=== PATIENT | male | born 1985 | race Caucasian/White ===

== ENCOUNTER 2020-12-25 10:45 | Emergency (ER) | payer OTHER ==
[2020-12-25] MEDS ORDERED: ACETAMINOPHEN 325 MG TABLET PO STA (10:47)
[2020-12-25 11:03] VITALS: BP 124/75
--- NOTE | 2020-12-25 11:55 | XRAY Report ---
PROCEDURE: Shoulder 2 View RT INDICATIONS: shoulder pain TECHNIQUE: 2 views of the shoulder were acquired. COMPARISON: None. FINDINGS: Bones: No fractures or dislocations. No suspicious bony lesions. Visualized ribs appear intact. R otator cuff is high riding. Soft tissues: No suspicious soft tissue calcifications. IMPRESSION: 1. No visualized acute fracture or dislocation. However, occult injury cannot be excluded. Recommend short interval imaging follow-up in 7-10 days as clinically indicated for additional evaluation. 2. High riding humeral head which can be seen with rotator cuff pathology. Reviewed by: Starla Delgado MD on 12/25/2020 11:54 AM PDT Approved by: Starla Delgado MD on 12/25/2020 11:54 AM PDT Station ID: [id number]
[2020-12-25] MEDS ORDERED: HYDROcod/ACETAM 5/325 MG TABLET PO STA (12:00)
--- NOTE | 2020-12-25 12:02 | ED Physician Documentation ---
PD HPI UPPER EXT INJURY - Stated complaint Stated Complaint: RT SHOULDER PX - Chief complaint Chief Complaint: Trauma Ext - History obtained from History obtained from: Patient - History of Present Illness Location: Right (About 5:00 last night fell directly on the right shoulder and has significant pain and describes a bump over the acromioclavicular joint. Significant decreased range of motion. No other injuries.) Review of Systems Constitutional: reports: Reviewed and negative Eyes: reports: Reviewed and negative Ears: reports: Reviewed and negative Nose: reports: Reviewed and negative Throat: reports: Reviewed and negative PD PAST MEDICAL HISTORY - Present Medications Home Medications: Ambulatory Orders Medication Instructions Recorded Confirmed HYDROcod/ACETAM 5/325 [[place] 5/325] 1 - 2 tab PO Q6H PRN #15 tablet 12/25/20 - Allergies Allergies/Adverse Reactions: Allergies Allergy/AdvReac Type Severity Reaction Status Date / Time No Known Drug Allergies Allergy Verified 12/25/20 11:00 PD ED PE NORMAL - Vitals Vital signs reviewed: Yes - General General: Alert and oriented X 3, No acute distress - Neck Neck: Supple, no meningeal sign, No bony TTP - Extremities Extremities: Other (Focally tender with some swelling over the right AC joint, cannot range at all due to pain. No tenderness over the clavicle medially or the glenohumeral joint.) - Neuro Neuro: Alert and oriented X 3, Normal speech Results - Vitals Vitals: Vital Signs - 24 hr 12/25/20 11:00 Temperature 36.5 C Heart Rate 70 Respiratory 16 Rate Blood Pressure 124/75 O2 Saturation 98 Oxygen O2 Source Room air PD MEDICAL DECISION MAKING - ED course ED course: 2 view x-ray of the right shoulder interpreted contemporaneously by me shows no fracture. Does have a high riding humeral head which may be suggestive of rotator cuff pathology. However this does not fit the clinical picture. I am prescribing a short course of short-acting opioid pain medication for this patient. I have reviewed the patients [employer]ONE[employer]ODUC[employer] and no concerning findings were noted. I have discussed that the opioids are for short term therapy only, and will not be refilled from the ED. Diagnosis: 1. Right acromioclavicular separation, type I Departure - Departure Disposition: 01 Home, Self Care Condition: Good Record reviewed to determine appropriate education?: Yes Instructions: ED Sprain AC Joint Prescriptions: HYDROcod/ACETAM 5/325 [[place] 5/325] 1 - 2 tab PO Q6H PRN #15 tablet PRN Reason: Pain Comments: Prescription sent electronically to [facility]. [place] for an appointment. Wear the sling for comfort, you can do gentle range of motion exercises as able. I am prescribing a short course of narcotic pain medication for you. These are potentially dangerous and addictive medications that should be used carefully. These medications may constipate you. Take an rebt-eha-nxgbtvz stool softener (docusate) twice daily with plenty of water while taking these medications. If you go 24 hours without a bowel movement, take vlcv-jlg-fufwdrw miralax, per package instructions. Do not drink or drive while taking these medications. If you received narcotic or sedating medications while in the emergency department, do not drive for 24 hours. Store this medication in a safe, secure place and out of reach of children. It is a violation of federal law to give or sell this medication to another person or to use in a manner other than prescribed. The ED will not refill narcotic prescriptions, including prescriptions lost or stolen. To dispose of unwanted medications: 1. [facility] at [address] in [place] has a medication drop box. They accept prescription medications (in pill form) Friday through Friday 9:00 a.m. to 5:00 p.m. 2. The [facility] Police Department accepts prescription medications (in pill form only) for disposal year round. Call for more information. 3. Contact the [facility] for the next [facility] sponsored prescription drug collection event. , x9077, or x5001; Note that many narcotic pain relievers also contain Tylenol/acetaminophen. Please ensure that your total dose of acetaminophen from all sources does not exceed 3 g (3000 mg) per day. Discharge Date/Time: 12/25/20 12:18
== END 2020-12-25 12:18 | disposition home or self-care (01) ==
LOC: ED 10:45
DX: S43.101A Unspecified dislocation of right acromioclavicular joint, initial encounter (principal); S43.51XA Sprain of right acromioclavicular joint, initial encounter; W19.XXXA Unspecified fall, initial encounter; Y93.89 Activity, other specified
CPT/HCPCS: 73030; 99283; A9270

== ENCOUNTER 2021-12-26 13:19 | Emergency (ER) | payer OTHER ==
[2021-12-26] MEDS ORDERED: IBUPROFEN 800 MG TABLET PO STA (14:08)
--- NOTE | 2021-12-26 14:09 | ED Physician Documentation ---
History of Present Illness - Stated complaint Stated Complaint: LT RIB CAGE PAIN/INJURY - Chief complaint Chief Complaint: Trauma Ch/Bk - History obtained from History obtained from: Patient (About 6 days ago he excellently ran into a small play structure to keep the child from falling. Pain was not too bad but is more significant over the last day or so. It is in the left low anterior ribs. No other injuries.) Review of Systems Constitutional: reports: Reviewed and negative Eyes: reports: Reviewed and negative Ears: reports: Reviewed and negative Nose: reports: Reviewed and negative PD PAST MEDICAL HISTORY - Present Medications Home Medications: Ambulatory Orders Medication Instructions Recorded Confirmed HYDROcod/ACETAM 5/325 [[place] 5/325] 1 - 2 tab PO Q6H PRN #15 tablet 12/26/21 - Allergies Allergies/Adverse Reactions: Allergies Allergy/AdvReac Type Severity Reaction Status Date / Time No Known Drug Allergies Allergy Verified 12/26/21 13:27 PD ED PE NORMAL - Vitals Vital signs reviewed: Yes - General General: Alert and oriented X 3, No acute distress - HEENT HEENT: PERRL, EOMI - Neck Neck: Supple, no meningeal sign, No bony TTP - Respiratory Respiratory: Other (There is a bruise around rib 8 or 10 in the posterior axillary line on the left, no tenderness there. He is tender to the corresponding ribs more anterior to this in the anterior axillary line. Breath sounds equal and symmetric.) - Abdomen Abdomen: Non tender - Neuro Neuro: Alert and oriented X 3, Normal speech Results - Vitals Vitals: Vital Signs - 24 hr 12/26/21 12/26/21 12/26/21 13:27 14:21 15:15 Temperature 36.8 C Heart Rate 102 H 76 76 Respiratory 16 16 16 Rate Blood Pressure 137/74 H 116/88 H 120/74 O2 Saturation 97 95 100 Oxygen O2 Source Room air PD MEDICAL DECISION MAKING - ED course ED course: X-ray not showing a rib fracture, nor a pneumothorax. Discussed with him the possibility of a hairline fracture, he does not have left upper quadrant tenderness. Departure - Departure Disposition: 01 Home, Self Care Clinical Impression: Chest wall contusion Condition: Good Record reviewed to determine appropriate education?: Yes Instructions: ED Contusion Rib Prescriptions: HYDROcod/ACETAM 5/325 [[place] 5/325] 1 - 2 tab PO Q6H PRN #15 tablet PRN Reason: Pain Comments: I sent your prescription electronically to [facility] in [place]. As discussed the x-ray does not show rib fracture but given your symptoms, it is possible that you have a nondisplaced rib fracture. It is good to continue to try to exercise and do a brief deep breathing. Ibuprofen for pain when its not too bad. Return if worse. [place] Friday or Friday. I am prescribing a short course of narcotic pain medication for you. These are potentially dangerous and addictive medications that should be used carefully. These medications may constipate you. Take an rrep-ybd-zwwthym stool softener (docusate) twice daily with plenty of water while taking these medications. If you go 24 hours without a bowel movement, take dbmc-gay-zwebktg miralax, per package instructions. Do not drink or drive while taking these medications. If you received narcotic or sedating medications while in the emergency department, do not drive for 24 hours. Store this medication in a safe, secure place and out of reach of children. It is a violation of federal law to give or sell this medication to another person or to use in a manner other than prescribed. The ED will not refill narcotic prescriptions, including prescriptions lost or stolen. To dispose of unwanted medications: 1. [facility] at [address] in [place] has a medication drop box. They accept prescription medications (in pill form) Friday through Friday 9:00 a.m. to 5:00 p.m. 2. The [facility] Police Department accepts prescription medications (in pill form only) for disposal year round. Call for more information. 3. Contact the [facility] for the next [facility] sponsored prescription drug collection event. , x7310, or x6428; Note that many narcotic pain relievers also contain Tylenol/acetaminophen. P lease ensure that your total dose of acetaminophen from all sources does not exceed 3 g (3000 mg) per day. Forms: Activity restrictions Discharge Date/Time: 12/26/21 15:15
--- NOTE | 2021-12-26 14:42 | XRAY Report ---
PROCEDURE: Ribs w/PA Chest LT INDICATIONS: rib inj TECHNIQUE: 2 views of the left ribs were acquired, along with a single view chest. COMPARISON: None. FINDINGS: Surgical changes and devices: None. Bones and chest wall: No fractures or dislocations. No suspicious bony lesions. Overlying soft tis sues appear unremarkable. Lungs and pleura: No pleural effusions or pneumothorax. Lungs appear clear. Mediastinum: Mediastinal contours appear normal. Heart size is normal. IMPRESSION: No displaced left-sided rib fracture. Reviewed by: Wilfrid Anderson MD on 12/26/2021 2:41 PM PDT Approved by: Wilfrid Anderson MD on 12/26/2021 2:41 PM PDT Station ID: [id number]
[2021-12-26 15:16] VITALS: BP 120/74
== END 2021-12-26 15:15 | disposition home or self-care (01) ==
LOC: ED 13:19
DX: S20.213A Contusion of bilateral front wall of thorax, initial encounter (principal); W22.8XXA Striking against or struck by other objects, initial encounter
CPT/HCPCS: 71101; 99282; 99283; A9270

== ENCOUNTER 2022-03-11 14:29 | Emergency (ER) | payer OTHER ==
--- OUTSIDE RECORDS SUMMARY | 2022-03-11 14:46 | EXTERNAL MEDICAL SUMMARY RPT | Continuity of Care Document ---
:1985 Author Organization [facility] Address [address] [place] [address] Phone Allergies No information. Encounters No information. Functional Status No information. Immunizations No information. Medications date description facility [id number] hydrocodone-acetaminophen All [id number]+0000 methocarbamol All [id number]+0000 methocarbamol All [id number]+0000 hydrocodone-acetaminophen All Problems No information. Procedures date description facility [id number] Visit Code Hold All Results/Labs No information. Social History No information. Vital Signs date measurement value units [id number]+0000 BMI BMI 27.30 kg/m2 [id number]+0000 BP_diastolic BP_diastolic 86 mm[H g] [id number]+0000 BP_systolic BP_systolic 128 mm[Hg] [id number]+0000 heart_rate heart_rate 85 /min [id number]+0000 height_metric height_metric 180.34 cm [id number]+0000 height_standard height_standard 71 in [id number]+0000 respiration_rate respiration_rate 15 /min [id number]+0000 temperature_metric temperature_metric 36.56 C [id number]+0000 temperature_standard temperature_standard 9 7.8 F [id number]+0000 weight_metric weight_metric 88.45 kg [id number]+0000 weight_standard weight_standard 195 lb
--- NOTE | 2022-03-11 16:48 | ED Physician Documentation ---
History of Present Illness - Stated complaint Stated Complaint: HEAD LAC - Chief complaint Chief Complaint: Laceration - Additonal information Additional information: Patient is a 36-year-old male presenting to the emergency department with scalp laceration. 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 Endorses for mild headache but denies any loss of consciousness, use of blood thinning medications, blurred or double vision. Does report that he "saw stars" during the event. Denies any previous history of concussion. Review of Systems Ten Systems: 10 systems reviewed and negative PD PAST MEDICAL HISTORY - Past Surgical History Past Surgical History: Yes General: Appendectomy - Present Medications Home Medications: Ambulatory Orders Medication Instructions Recorded Confirmed HYDROcod/ACETAM 5/325 [[place] 5/325] 1 - 2 tab PO Q6H PRN #15 tablet 12/26/21 Bacitracin Zinc Oint 1 applic TOP BID #1 gm 03/11/22 - Allergies Allergies/Adverse Reactions: Allergies Allergy/AdvReac Type Severity Reaction Status Date / Time No Known Drug Allergies Allergy Verified 03/11/22 14:39 - Social History Does the pt smoke?: No Smoking Status: Never smoker Does the pt drink ETOH?: No Does the pt have substance abuse?: No - Immunizations Immunizations are current?: Yes - POLST Patient has POLST: No PD ED PE NORMAL - General General: Alert and oriented X 3, No acute distress, Well developed/nourished - HEENT HEENT: Other (2 cm left parietal scalp laceration.) - Neck Neck: Supple, no meningeal sign - Respiratory Respiratory: No respiratory distress - Male Male : Deferred - Rectal Rectal: Deferred - Derm Derm: Normal color - Extremities Extremities: No deformity - Neuro Neuro: Alert and oriented X 3, 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, No motor deficit - Psych Psych: Normal mood Results - Vitals Vitals: Vital Signs - 24 hr 03/11/22 14:35 Temperature 36.3 C L Heart Rate 75 Respiratory 16 Rate Blood Pressure 149/80 H O2 Saturation 98 Oxygen O2 Source Room air Procedures - Laceration (location) Scalp left Length in cm: 2 Wound type: Curved, Into subcut fat Neurovascular status: Sensory intact Anesthesia: Lidocaine 1% with epi Wound preparation: Chlorhexadine Skin layer closure: [place], Size #-0 - enter number (6) PD MEDICAL DECISION MAKING - ED course Complexity details: d/w patient ED course: Patient 36-year-old male presenting with scalp laceration. No loss of consciousness, use of blood thinners or indications for advanced imaging. Wound cleaned and repaired as outlined in procedure note above. Wound care instructions and follow-up instructions given. Departure - Departure Disposition: 01 Home, Self Care Clinical Impression: Laceration Instructions: ED Laceration Scalp Stitch Or Stap Prescriptions: Bacitracin Zinc Oint 1 applic TOP BID #1 gm Comments: Thank you for allowing us to care for you today [facility]. Today received sick stitches to the laceration in your scalp. These will need to be removed in 7 to 10 days. Rinsing the site of your injury with warm soap and water is fine but please do not scrub the site of your injury or submerge the site underwater until it is fully healed. I recommend twice daily application of bacitracin or Neosporin to the site of your injury. Please monitor carefully for any signs of infection such as increasing swelling, heat or purulent drainage. If anytime you develop any new or worsening symptoms please not hesitate to return.
[2022-03-11] MEDS ORDERED: LIDOCAINE 1%-EPI 1:100000 20 ML MDV SUBQ STA (16:49)
[2022-03-11] MEDS ORDERED: BACITRACIN ZINC OINT 1 PACKET TOP STA (17:22)
[2022-03-11 17:29] VITALS: BP 130/80
== END 2022-03-11 17:28 | disposition home or self-care (01) ==
LOC: ED 14:29
DX: S01.91XA Laceration without foreign body of unspecified part of head, initial encounter (principal); W22.8XXA Striking against or struck by other objects, initial encounter
CPT/HCPCS: 12001; 99282; A9270

== ENCOUNTER 2023-04-13 19:33 | Emergency (ER) | payer OTHER ==
[2023-04-13] MEDS ORDERED: CHERRY SYRUP 10 ML UDC PO ONE (20:18)
[2023-04-13] MEDS ORDERED: DEXAMETHASONE 10 MG/ML VIAL PO STA (20:18)
[2023-04-13] MEDS ORDERED: BENZONATATE 100 MG CAPSULE PO STA (20:18)
--- NOTE | 2023-04-13 20:21 | ED Physician Documentation ---
History of Present Illness - Stated complaint Stated Complaint: COUGHING BLOOD - Chief complaint Chief Complaint: Resp - Additonal information Additional information: Patient 37-year-old male presenting to the emergency department with cough, congestion, low-volume hemoptysis. Reports persistent worsening cough since . Denies fever, chest pain or shortness of breath. Reports began having small streaks of blood in his cough the last 2 days. Reports longstanding smoking history. Currently reports 2 packs daily. States has quit many times in the past but frequently relapses. He denies other illicit substances. Denies any night sweats, weight loss, travel outside of the [facility], known sick contacts. Review of Systems Constitutional: denies: Fever Eyes: denies: Loss of vision Ears: denies: Loss of hearing Nose: denies: Rhinorrhea / runny nose Throat: denies: Dental pain / toothache Cardiac: denies: Chest pain / pressure Respiratory: reports: Cough, Hemoptysis. denies: Dyspnea, Wheezing GI: denies: Abdominal Pain, Nausea, Vomiting PD PAST MEDICAL HISTORY - Past Surgical History Past Surgical History: Yes General: Appendectomy - Present Medications Home Medications: Ambulatory Orders Medication Instructions Recorded Confirmed HYDROcod/ACETAM 5/325 [[place] 5/325] 1 - 2 tab PO Q6H PRN #15 tablet 12/26/21 Bacitracin Zinc Oint 1 applic TOP BID #1 gm 03/11/22 Benzonatate [Tessalon] 200 mg PO TID PRN #30 cap 04/13/23 Codeine Phosphate/Guaifenesin 10 ml PO DAILY PM #100 ml 04/13/23 [Guaifen-Codeine 200-20 mg/10Ml] predniSONE [Deltasone] 40 mg PO DAILY #5 tablet 04/13/23 - Allergies Allergies/Adverse Reactions: Allergies Allergy/AdvReac Type Severity Reaction Status Date / Time No Known Drug Allergies Allergy Verified 04/13/23 19:45 - Social History Does the pt smoke?: No Smoking Status: Never smoker Does the pt drink ETOH?: No Does the pt have substance abuse?: No - Immunizations Immunizations are current?: Yes - POLST Patient has POLST: No PD ED PE NORMAL - Vitals Vital signs reviewed: Yes (Low level tachycardia) - General General: Alert and oriented X 3, No acute distress, Well developed/nourished, Other (Frequent episodes of nonproductive cough) - HEENT HEENT: Atraumatic - Neck Neck: Supple, no meningeal sign - Cardiac Cardiac: RRR - Respiratory Respiratory: No respiratory distress - Male Male : Deferred - Rectal Rectal: Deferred Results - Vitals Vitals: Vital Signs - 24 hr 04/13/23 04/13/23 19:42 19:45 Temperature 36.1 C L 36.5 C Heart Rate 107 H 107 H Respiratory 19 19 Rate Blood Pressure 154/96 H 154/96 H O2 Saturation 99 99 Oxygen O2 Source Room air - Labs Labs: Laboratory Tests 04/13/23 20:30 Nasal Adenovirus (PCR) NOT DETECTED Nasal B. parapertussis DNA (PCR) NOT DETECTED Nasal Coronavir 229E PCR NOT DETECTED Nasal Coronavir HKU1 PCR NOT DETECTED Nasal Coronavir NL63 PCR NOT DETECTED Nasal Coronavir OC43 PCR NOT DETECTED Nasal Enterovir/Rhinovir PCR DETECTED A Nasal Influenza B PCR NOT DETECTED Nasal Influenza A PCR NOT DETECTED Nasal Parainfluen 1 PCR NOT DETECTED Nasal Parainfluen 2 PCR NOT DETECTED Nasal Parainfluen 3 PCR NOT DETECTED Nasal Parainfluen 4 PCR NOT DETECTED Nasal RSV (PCR) NOT DETECTED Nasal B.pertussis DNA PCR NOT DETECTED Nasal C.pneumoniae (PCR) NOT DETECTED Lucas Human Metapneumo PCR NOT DETECTED Nasal M.pneumoniae (PCR) NOT DETECTED Nasal SARS-CoV-2 (PCR) NOT DETECTED PD Medical Decision Making - ED course Complexity details: reviewed results, d/w patient ED course: Patient 37-year-old male presenting to the emergency department with cough with low-volume hemoptysis. Low level tachycardia on arrival but afebrile, otherwise hemodynamically stable. Nontoxic in appearance. Clear aeration in all lung howell. X-ray negative for consolidation, abscess, granular Tory complexes. Respiratory panel positive for rhinovirus. In setting of longstanding smoking history patient appears to be suffering from bronchitis. Will discharge with medication to work as an antitussive as well as a short course of prednisone. Will encourage tobacco cessation as well as careful follow-up with primary care. Clear return precautions given. Departure - Departure Disposition: 01 Home, Self Care Clinical Impression: Bronchitis, Rhinovirus infection Prescriptions: predniSONE [Deltasone] 40 mg PO DAILY #5 tablet Codeine Phosphate/Guaifenesin [Guaifen-Codeine 200-20 mg/10Ml] 10 ml PO DAILY PM #100 ml Benzonatate [Tessalon] 200 mg PO TID PRN #30 cap PRN Reason: Cough Comments: Thank you for allowing us to care for you today Fany. The x-rays taken today did not show any pneumonia or other significant abnormality with your lung. Your cough is very consistent with what is known as acute bronchitis, and inflammation of the bronchi. You were positive for rhinovirus and it is not atypical for an upper respiratory infection to cause bronchitis in individuals with a longstanding history of heavy smoking. I would like to strongly encourage you to work towards discontinue your use of tobacco products. I written a prescription for a course of prednisone to help with any inflammation around your lungs as well as to antitussive medications. Tessalon Perles to be used during the day as well as a codeine-containing cough syrup that can be used at night. Please be aware that the codeine-containing cough syrup is both sedating and has potential to be habit-forming. Should not be used if you are operating a motor vehicle, using of a machinery or you are the sole oracle drm consultant of young children. Please follow-up with your primary care doctor soon as possible. If it anytime you have new or worsening symptoms please do not hesitate to return. Forms: PCP List
--- NOTE | 2023-04-13 21:00 | XRAY Report ---
PROCEDURE: Chest 2 View X-Ray INDICATIONS: cough TECHNIQUE: 2 views of the chest were acquired. COMPARISON: 12/26/2021 FINDINGS: Surgical changes and devices: None. Lungs and pleura: No pleural effusions or pneumothorax. Lungs are clear. Mediastinum: Mediastinal contours appear normal. Heart size is normal. Bones and chest wall: No suspicious bony lesions. Overlying soft tissues appear unremarkable. IMPRESSION: No acute cardiopulmonary process. Reviewed by: Lina Ritchie MD on 04/13/2023 8:59 PM PDT Approved by: Lina Ritchie MD on 04/13/2023 8:59 PM PDT Station ID: [id number]
[2023-04-13 21:28] LABS: B. PARAPERTUSSIS- RESP PCR PAN NOT DETECTED; B. PERTUSSIS- RESP PCR PANEL NOT DETECTED; C. PNEUMONIAE- RESP PCR PANEL NOT DETECTED; CORONAVIRUS 229E-RESP PCR NOT DETECTED; CORONAVIRUS HKU1-RESP PCR NOT DETECTED; CORONAVIRUS NL63-RESP PCR NOT DETECTED; CORONAVIRUS OC43-RESP PCR NOT DETECTED; HUMAN METAPNEUMOVIRUS NOT DETECTED; INFLUENZA A- RESP PCR PANEL NOT DETECTED; INFLUENZA B - RESP PCR PANEL NOT DETECTED; M. PNEUMONIAE- RESP PCR PANEL NOT DETECTED; PARAINFLUENZA VIRUS 1 NOT DETECTED; PARAINFLUENZA VIRUS 2 NOT DETECTED; PARAINFLUENZA VIRUS 3 NOT DETECTED; PARAINFLUENZA VIRUS 4 NOT DETECTED; RHINOVIRUS/ENTEROVIRUS DETECTED; RSV- RESP PCR PANEL NOT DETECTED; SARS-CoV-2 -RESP PCR PANEL NOT DETECTED
[2023-04-13 21:43] VITALS: BP 138/88; O2SAT 100
== END 2023-04-13 21:39 | disposition home or self-care (01) ==
LOC: ED 19:33
DX: J40 Bronchitis, not specified as acute or chronic (principal); B97.89 Other viral agents as the cause of diseases classified elsewhere; F17.200 Nicotine dependence, unspecified, uncomplicated; Z20.822 Contact with and (suspected) exposure to COVID-19
CPT/HCPCS: 71046; 87633; 99284; A9270

== ENCOUNTER 2023-11-03 11:21 | Emergency (ER) | payer OTHER ==
[2023-11-03 11:40] VITALS: BP 138/79; O2SAT 100
--- NOTE | 2023-11-03 12:22 | ED Physician Documentation ---
PD HPI LOWER EXT INJURY - Stated complaint Stated Complaint: LT ANKLE INJ - Chief complaint Chief Complaint: Ext Problem - History obtained from History obtained from: Patient - Additional information Additional information: Yesterday afternoon he was playing with his kids and impacted his right ankle on the playset. This is in contrast to the nurses notes that state there was no trauma. Since then he has had severe left ankle pain and cannot walk. No other injuries. PD PAST MEDICAL HISTORY - Past Medical History Past Medical History: Yes Psych: Depression, Anxiety, Post traumatic stress disorder - Past Surgical History Past Surgical History: Yes General: Appendectomy - Present Medications Home Medications: Ambulatory Orders Medication Instructions Recorded Confirmed Cholecalciferol [Vitamin D3] 10,000 unit PO Q7D 11/03/23 11/03/23 Escitalopram [Lexapro] 30 mg PO DAILY 11/03/23 11/03/23 Gabapentin [Neurontin] 300 mg PO TID 11/03/23 11/03/23 HYDROcod/ACETAM 5/325 [[place] 5/325] 1 - 2 tab PO Q6H PRN #10 tablet 11/03/23 Ibuprofen [Motrin] 800 mg PO Q8H PRN #20 tablet 11/03/23 Propranolol HCl 20 mg PO TID PRN 11/03/23 11/03/23 Trazodone HCl 150 mg PO HS 11/03/23 11/03/23 buPROPion HCL [Wellbutrin Xl] 300 mg PO DAILY 11/03/23 11/03/23 hydrOXYzine HCL [Hydroxyzine HCl] 25 mg PO DAILY PRN 11/03/23 11/03/23 oxyBUTYnin chloride [Oxybutynin 5 mg PO DAILY 11/03/23 11/03/23 Chloride] - Allergies Allergies/Adverse Reactions: Allergies Allergy/AdvReac Type Severity Reaction Status Date / Time No Known Drug Allergies Allergy Verified 11/03/23 11:33 - Social History Does the pt smoke?: No Smoking Status: Current every day smoker Does the pt drink ETOH?: No Does the pt have substance abuse?: No - Immunizations Immunizations are current?: Yes - POLST Patient has POLST: No PD ED PE NORMAL - Vitals Vital signs reviewed: Yes - General General: Alert and oriented X 3, No acute distress - Neck Neck: C-Spine cleared by NEXUS criteria - Extremities Extremities: Other (There are 2 abrasions over the lateral left ankle with significant swelling, bruising, and tenderness there. No tenderness of the knee, hip, proximal fibula, nor foot on that side.) - Neuro Neuro: Alert and oriented X 3, Normal speech Results - Vitals Vitals: Vital Signs - 24 hr 11/03/23 11:31 Temperature 36.5 C Heart Rate 99 Respiratory 16 Rate Blood Pressure 138/79 H O2 Saturation 100 Oxygen O2 Source Room air - Rads (name of study) Three-view x-ray of the left ankle showing soft tissue swelling, otherwise unremarkable without fracture. Relevant Findings:: Final report received, EMP independent interpretation of test Departure - Departure Disposition: 01 Home, Self Care Clinical Impression: Left ankle sprain Qualifiers: Encounter type: initial encounter Involved ligament of ankle: anterior talofibular ligament Qualified Code(s): S93.492A - Sprain of other ligament of left ankle, initial encounter Contusion of left ankle Qualifiers: Encounter type: initial encounter Qualified Code(s): S90.02XA - Contusion of left ankle, initial encounter Condition: Good Record reviewed to determine appropriate education?: Yes Instructions: ED Sprain Ankle W X Ray Prescriptions: Ibuprofen [Motrin] 800 mg PO Q8H PRN #20 tablet PRN Reason: PAIN &/OR FEVER HYDROcod/ACETAM 5/325 [[place] 5/325] 1 - 2 tab PO Q6H PRN #10 tablet PRN Reason: Pain Comments: I sent your prescription electronically to the [facility] in [place]. Return for new or worsening symptoms. There is no fracture on the x-ray so it is okay to walk on it when you feel able. 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 I am prescribing a short course of narcotic pain medication for you. These are potentially dangerous and addictive medications that should be used carefully. These medications may constipate you. Take an [id number]-[id number] stool softener (docusate) twice daily with plenty of water while taking these medications. If you go 24 hours without a bowel movement, take ssxw-[id number]-[id number] miralax, per package instructions. Do not drink or drive while taking these medications. If you received narcotic or sedating medications while in the emergency department, do not drive for 24 hours. Store this medication in a safe, secure place and out of reach of children. It is a violation of federal law to give or sell this medication to another person or to use in a manner other than prescribed. The ED will not refill narcotic prescriptions, including prescriptions lost or stolen. To dispose of unwanted medications: 1. [facility] provides a drop box for medication in pill form only (no liquids) 8:00 am to 4:30 p.m. Friday-Friday in the lobby of the [facility], [address] [place] [address]. Empty pills into ziplock bag before disposal. Call [phone] for information. 2.[employer] is a free service available to all [facility] residents. Go to [email or web address] Note that many narcotic pain relievers also contain Tylenol/acetaminophen. Please ensure that your total dose of acetaminophen from all sources does not exceed 3 g (3000 mg) per day. Forms: Activity restrictions
--- NOTE | 2023-11-03 12:24 | XRAY Report ---
PROCEDURE: Ankle 3+V LT INDICATIONS: pain TECHNIQUE: 3 views of the ankle were acquired. COMPARISON: None. FINDINGS: Bones: No fractures or dislocations. Ankle mortise is normally aligned. No suspicious bony lesions . Soft tissues: Significant lateral ankle soft tissue swelling is seen. No tibiotalar joint effusion. Achilles tendon appears normal. IMPRESSION: No acute bony abnormality. The lateral ankle soft tissue swelling. Significant lateral ankle soft tissue swelling. Reviewed by: Javid Mondragon MD on 11/03/2023 12:23 PM PDT Approved by: Javid Mondragon MD on 11/03/2023 12:23 PM PDT Station ID: [id number]
[2023-11-03] MEDS: IBUPROFEN 800 MG TABLET PO STA (12:30)
[2023-11-03] MEDS: HYDROcod/ACETAM 5/325 MG TABLET PO STA (12:30)
== END 2023-11-03 12:42 | disposition home or self-care (01) ==
LOC: ED 11:21
DX: S93.402A Sprain of unspecified ligament of left ankle, initial encounter (principal); S90.02XA Contusion of left ankle, initial encounter; W22.09XA Striking against other stationary object, initial encounter; F17.200 Nicotine dependence, unspecified, uncomplicated
CPT/HCPCS: 73610; 99283; 99284; A9270

== ENCOUNTER 2023-11-05 11:45 | Outpatient (CLI) | payer OTHER ==
--- NOTE | 2023-11-05 15:48 | XRAY Report ---
PROCEDURE: Ankle 3+V LT INDICATIONS: ANKLE SWELLING AND ECCHYMOSIS TECHNIQUE: 3 views of the ankle were acquired. COMPARISON: Left ankle radiograph dated November 03, 2023. FINDINGS: Bones: Query an avulsion fracture measuring 2 mm inferior to the lateral malleolus of unknown parent site. Ankle mortise is normally aligned. No suspicious bony lesions. Soft tissues: No tibiotalar joint effusion. Achilles tendon appears normal. Soft tissue swelling o verlying the lateral malleolus persists. IMPRESSION: Query an avulsion fracture measuring 2 mm inferior to the lateral malleolus of unknown parent site. S oft tissue swelling overlying the lateral malleolus persists. Reviewed by: Holly Moore MD on 11/05/2023 3:46 PM PDT Approved by: Holly Moore MD on 11/05/2023 3:46 PM PDT Station ID: [id number]
--- NOTE | 2023-11-05 15:49 | XRAY Report ---
PROCEDURE: Foot 3+V LT INDICATIONS: LEFT LATERAL FOOT PAIN AND SWELLING TECHNIQUE: 3 views of the foot were acquired. COMPARISON: None. FINDINGS: Bones: No fractures or dislocations. Normal alignment on nonweightbearing view. No suspicious bony lesions. Soft tissues: No tibiotalar joint effusion. Achilles tendon appears normal. IMPRESSION: No acute bony abnormality. Reviewed by: Holly Moore MD on 11/05/2023 3:47 PM PDT Approved by: Holly Moore MD on 11/05/2023 3:47 PM PDT Station ID: [id number]
== END 2023-11-05 12:00 | disposition home or self-care (01) ==
LOC: DI.N 11:45
PROVIDERS: ATTEND Physician Assistant Medical
DX: S93.402A Sprain of unspecified ligament of left ankle, initial encounter (principal)

== ENCOUNTER 2024-02-04 14:12 | Emergency (ER) | payer OTHER ==
--- NOTE | 2024-02-04 14:47 | ED Physician Documentation ---
PD HPI GI BLEED - Stated complaint Stated Complaint: GI PX BLEED - Chief complaint Chief Complaint: Abd Pain - History obtained from History obtained from: Patient - History of Present Illness Timing - onset: How many hours ago (had BM and felt pain at rectum and noted some red blood in toilet bowl. No abd pain per se. Denies rectal problems. no constipation. no FBs.), Today Timing - details: Abrupt onset, Still present Associated symptoms: BRBPR. No: Diarrhea, Constipation Similar symptoms before: Has not had sx before PD PAST MEDICAL HISTORY - Past Medical History Past Medical History: Yes Psych: Depression, Anxiety, Post traumatic stress disorder - Past Surgical History Past Surgical History: Yes General: Appendectomy - Present Medications Home Medications: Ambulatory Orders Medication Instructions Recorded Confirmed Cholecalciferol [Vitamin D3] 10,000 unit PO Q7D 11/03/23 02/04/24 Escitalopram [Lexapro] 30 mg PO DAILY 11/03/23 02/04/24 Gabapentin [Neurontin] 300 mg PO TID 11/03/23 02/04/24 Propranolol HCl 20 mg PO TID PRN 11/03/23 02/04/24 Trazodone HCl 150 mg PO HS 11/03/23 02/04/24 buPROPion HCL [Wellbutrin Xl] 300 mg PO DAILY 11/03/23 02/04/24 hydrOXYzine HCL [Hydroxyzine HCl] 25 mg PO DAILY PRN 11/03/23 02/04/24 oxyBUTYnin chloride [Oxybutynin 5 mg PO DAILY 11/03/23 02/04/24 Chloride] Clotrimazole/Betamethasone Crm 1 applic TOP BID 5 Days #45 gm 02/04/24 [Lotrisone Cream] Hydrocortisone Supp [Anusol-Hc] 1 each FL DAILY 5 Days #5 supp 02/04/24 - Allergies Allergies/Adverse Reactions: Allergies Allergy/AdvReac Type Severity Reaction Status Date / Time No Known Drug Allergies Allergy Verified 02/04/24 14:18 - Social History Does the pt smoke?: Yes Smoking Status: Current every day smoker Does the pt drink ETOH?: Yes Does the pt have substance abuse?: No - Immunizations Immunizations are current?: Yes - POLST Patient has POLST: No PD ED PE NORMAL - Vitals Vital signs reviewed: Yes - General General: Alert and oriented X 3, Well developed/nourished - Abdomen Abdomen: Soft, Non tender - Male Male : Deferred - Rectal Rectal: Other (externally normal. No perirectal tenderness. Digital exam tender with only tip of my finger in due to discomfort. [place] some inflammation most likely c/w hemorrhoid. ) Results - Vitals Vitals: Oxygen O2 Source Room air - Labs Labs: Laboratory Tests 02/04/24 02/04/24 02/04/24 15:21 15:21 15:21 WBC 6.2 RBC 4.56 L Hgb 14.3 Hct 41.2 L MCV 90.4 MCH 31.4 H MCHC 34.7 RDW 11.8 L Plt Count 246 MPV 8.8 Neut # (Auto) 3.8 Lymph # (Auto) 1.6 [place] # (Auto) 0.6 Eos # (Auto) 0.1 Baso # (Auto) 0.1 Absolute Nucleated RBC 0.00 Nucleated RBC % 0.0 ESR 2 Sodium 137 Potassium 3.8 Chloride 104 Carbon Dioxide 27 Anion Gap 6.0 BUN 16 Creatinine 0.9 Estimated GFR (MDRD) 95 Glucose 92 Calcium 9.3 Total Bilirubin 0.8 AST 25 ALT 34 Alkaline Phosphatase 46 C-Reactive Protein < 0.5 Total Protein 6.9 Albumin 4.3 Globulin 2.6 Albumin/Globulin Ratio 1.7 Lipase < 10 L Urine Color Urine Clarity Urine pH Ur Specific [place] Urine Protein Urine Glucose (UA) Urine Ketones Urine Occult Blood Urine Nitrite Urine Bilirubin Urine Urobilinogen Ur Leukocyte Esterase Ur Microscopic Review Urine Culture Comments 02/04/24 16:15 WBC RBC Hgb Hct MCV MCH MCHC RDW Plt Count MPV Neut # (Auto) Lymph # (Auto) [place] # (Auto) Eos # (Auto) Baso # (Auto) Absolute Nucleated RBC Nucleated RBC % ESR Sodium Potassium Chloride Carbon Dioxide Anion Gap BUN Creatinine Estimated GFR (MDRD) Glucose Calcium Total Bilirubin AST ALT Alkaline Phosphatase C-Reactive Protein Total Protein Albumin Globulin Albumin/Globulin Ratio Lipase Urine Color YELLOW Urine Clarity CLEAR Urine pH 6.5 Ur Specific [place] >=1.030 H Urine Protein NEGATIVE Urine Glucose (UA) NEGATIVE Urine Ketones TRACE Urine Occult Blood NEGATIVE Urine Nitrite NEGATIVE Urine Bilirubin NEGATIVE Urine Urobilinogen 0.2 (NORMAL) Ur Leukocyte Esterase NEGATIVE Ur Microscopic Review NOT INDICATED Urine Culture Comments NOT INDICATED - Rads (name of study) abd/pelvic CT Relevant Findings:: Prelim report reviewed (no acute findings to account for blood in stool//rectally), EMP independent interpretation of test PD Medical Decision Making - ED course Complexity details: reviewed results (pt concerned about more internal process. Shared discussion to get CT to eval for masses, obvious inflammation, abscess, etc. ), considered differential (BRBPR after formed BM without constipation. Has pain at rectal area. Tender on exam so not able to do full digital exam but some inflammation on side. No external hemorrhoids. Can presume hemorrhoids for now and f/u with PCP to consider colonoscopy. ), d/w patient Departure - Departure Disposition: Home, Self Care Clinical Impression: Rectal pain, Candidal skin infection, Internal hemorrhoid, BRBPR (bright red blood per rectum) Condition: Stable Record reviewed to determine appropriate education?: Yes Instructions: ED Hemorrhoids Follow-Up: ADRIAN SAVAGE, [Primary Care Provider] - Prescriptions: Hydrocortisone Supp [Anusol-Hc] 1 each FL DAILY 5 Days #5 supp Clotrimazole/Betamethasone Crm [Lotrisone Cream] 1 applic TOP BID 5 Days #45 gm Comments: Your CT scan does not show any obvious abnormality in the pelvic or rectal area. This would be able to evaluate structural abnormalities such as tumors and masses, localized infection such as diverticulitis or abscess and the any notable local area of bowel wall inflammation such as colitis. It is not necessarily accurate enough to just see irritation in the wall lining or small structures that would blend in with the stool such as small polyps etc. It is also harder to distinguish hemorrhoids etc. You do have tenderness at the rectum with some limited inflammation. I believe your symptoms are related to some inflammation and bleeding of the internal hemorrhoids. There is not really any inflammed external ones. In the perirectal area you do have demarcated mildly red rash which is incidental to the bleeding or pain but does look perhaps like a mild yeast infection. You can use a antifungal cream along with an anti-inflammatory externally just in the perirectal area twice daily for the next 5 to 7 days. Otherwise use the steroid suppositories daily for the next 5 days to calm the hemorrhoids. Subsequently follow-up with the GI team you have been referred for consideration of a sigmoidoscopy or colonoscopy just to ensure no signs of other minor abnormalities such as polyps or local areas of colitis etc. Forms: PCP List Discharge Date/Time: 02/04/24 18:12
[2024-02-04] MEDS: KETOROLAC 15 MG/ML VIAL IVP STA (15:30)
[2024-02-04 15:34] LABS: BASOPHILS # (AUTO) 0.1 10^3/uL (0.0-0.1); BASOPHILS % (AUTO) 0.8 %; EOSINOPHILS # (AUTO) 0.1 10^3/uL (0.0-0.7); EOSINOPHILS % (AUTO) 1.3 %; HCT - HEMATOCRIT 41.2 % (42.0-52.0); HGB - HEMOGLOBIN 14.3 g/dL (14.0-18.0); LYMPHOCYTES # (AUTO) 1.6 10^3/uL (1.5-3.5); LYMPHOCYTES % (AUTO) 26.2 %; MEAN CORPUSCULAR HEMOGLOBIN 31.4 pg (27.0-31.0); MEAN CORPUSCULAR HGB CONC 34.7 g/dL (32.0-36.0); MEAN CORPUSCULAR VOLUME 90.4 fL (80.0-94.0); MEAN PLATELET VOLUME 8.8 fL (7.4-11.4); MONOCYTES # (AUTO) 0.6 10^3/uL (0.0-1.0); NEUTROPHILS # (AUTO) 3.8 10^3/uL (1.5-6.6); NEUTROPHILS % (AUTO) 61.4 %; PLT - PLATELET COUNT 246 10^3/uL (130-450); RED BLOOD COUNT 4.56 10^6/uL (4.70-6.10); RED CELL DISTRIBUTION WIDTH 11.8 % (12.0-15.0); WHITE BLOOD COUNT 6.2 x10^3/uL (4.8-10.8)
[2024-02-04 15:54] LABS: ALBUMIN 4.3 g/dL (3.2-5.5); ALBUMIN/GLOBULIN RATIO 1.7 (1.0-2.2); ALKALINE PHOSPHATASE 46 IU/L (42-121); ALT ALANINE AMINOTRANSFERASE 34 IU/L (10-60); AST ASPARTATE AMINOTRANSFERASE 25 IU/L (10-42); BILIRUBIN,TOTAL 0.8 mg/dL (0.2-1.0); BUN - BLOOD UREA NITROGEN 16 mg/dL (6-20); CALCIUM 9.3 mg/dL (8.5-10.3); CARBON DIOXIDE - CO2 27 mmol/L (21-32); CHLORIDE 104 mmol/L (101-111); CREATININE 0.9 mg/dL (0.6-1.3); CRP - C-REACTIVE PROTEIN < 0.5 mg/dL (<0.5); GFR - MDRD 95 (>89); GLUCOSE 92 mg/dL (74-104); POTASSIUM 3.8 mmol/L (3.5-4.5); SODIUM 137 mmol/L (135-145); TOTAL PROTEIN 6.9 g/dL (6.4-8.9)
[2024-02-04] MEDS ORDERED: iohexoL-300 100 ML VIAL ONE (15:57)
[2024-02-04 15:58] LABS: LIPASE < 10 U/L (11-82)
[2024-02-04] MEDS: iohexoL-300 100 ML VIAL IVP ONE (16:11)
[2024-02-04 16:35] LABS: BILIRUBIN,URINE NEGATIVE (NEGATIVE); GLUCOSE, URINE (UA) NEGATIVE (NEGATIVE); KETONES,URINE (UA) TRACE mg/dL (NEGATIVE); LEUKOCYTE ESTERASE, URINE NEGATIVE (NEGATIVE); NITRITE,URINE NEGATIVE (NEGATIVE); OCCULT BLOOD,URINE NEGATIVE (NEGATIVE); PH,URINE 6.5 PH (5.0-7.5); PROTEIN,URINE NEGATIVE (NEGATIVE); UROBILINOGEN,URINE 0.2 (NORMAL) E.U./dL (NORMAL)
[2024-02-04 16:36] LABS: CLARITY,URINE CLEAR (CLEAR)
[2024-02-04 17:05] VITALS: O2SAT 99
--- NOTE | 2024-02-04 17:12 | CT Report ---
PROCEDURE: Abdomen/Pelvis W INDICATIONS: LLQ Abdominal pain, diverticulitis suspected CONTRAST: Omni 300 100ml TECHNIQUE: After the administration of intravenous contrast, a CT scan of the abdomen and pelvis was performed. Images were recorded and evaluated at appropriate window settings. Reformats: coronal and sagittal. F or radiation dose reduction, the following was used: automated exposure control, adjustment of mA and /or kV according to patient size. COMPARISON: None. FINDINGS: Image quality: Diagnostic. Lower chest: Unremarkable. Liver: No solid mass. Mild diffuse hepatic steatosis. Gallbladder: No radiopaque stones or wall thickening. Biliary tree: No intrahepatic or extrahepatic dilation, accounting for age. Spleen: No splenomegaly. Pancreas: No pancreatic ductal dilation. Adrenals: Small left adrenal adenoma. Kidneys and ureters: No hydronephrosis. No renal cystic lesion which requires follow up. No solid mas s. Stomach, bowel and peritoneum: No gastric or small bowel dilation. No abnormal wall thickening. No pa thologic free fluid. Lymph nodes: No central or retroperitoneal adenopathy. Vessels: No infrarenal aortic aneurysm. Patent portal vein. PELVIS Reproductive organs: Unremarkable. Bladder: No abnormal wall thickening, accounting for underdistention. Pelvic lymph nodes: No pelvic adenopathy by size criteria. Bones: No aggressive osseous abnormality. Other: No significant ventral or inguinal hernia. IMPRESSION: 1. Mild diffuse hepatic steatosis. 2. No acute abdominal process. No findings which explain left lower quadrant pain. Reviewed by: Misael Cassidy MD on 02/04/2024 5:10 PM PDT Approved by: Misael Cassidy MD on 02/04/2024 5:10 PM PDT Station ID: [id number]
[2024-02-04] MEDS: HYDROCORTISONE 25 MG SUPPOSITORY PR STA (17:40)
[2024-02-04 17:57] VITALS: BP 128/89
== END 2024-02-04 18:12 | disposition home or self-care (01) ==
LOC: ED 14:12
DX: K62.89 Other specified diseases of anus and rectum (principal); B37.2 Candidiasis of skin and nail; K64.8 Other hemorrhoids; K62.5 Hemorrhage of anus and rectum; R10.32 Left lower quadrant pain
CPT/HCPCS: 36415; 74177; 80053; 81003; 83690; 85025; 85651; 86140; 96374; 99284; J3490; Q9967; 81001; 87086